=== PATIENT | female | born 2000 | race African-American/Black ===

== ENCOUNTER 2024-07-18 19:14 | Emergency (ER) | payer OTHER ==
[~2024-07-18] VITALS: Ht 175.3 cm; Wt 113.0 kg
[2024-07-18 19:22] VITALS: BP 140/90; PULSE 94; RESP 14; TEMP 36.9; O2SAT 98
== END 2024-07-18 21:21 | disposition left against medical advice (07) ==
LOC: ER 19:14
DX: M79.604 Pain in right leg (principal); Z53.21 Procedure and treatment not carried out due to patient leaving prior to being seen by health care provider